=== PATIENT | female | born 1965 | race African-American/Black ===

== ENCOUNTER 2021-10-25 09:17 | Emergency (ER) | payer MEDICARE, MEDICAID, SELFPAY ==
[2021-10-25 09:30] VITALS: BP 158/107; PULSE 146; RESP 18; TEMP 38.8; O2SAT 98
[2021-10-25] MEDS: ACETAMINOPHEN 325 MG TABLET 650 MG PO (10:04)
--- NOTE | 2021-10-25 10:04 | ED.URI ---
HPI - URI/Sore Throat General Chief Complaint: Upper Respiratory Infection Stated Complaint: vomiting/cold sx Source: patient and family Mode of arrival: ambulatory History of Present Illness HPI Narrative: This is a 55-year-old female presented to urgent care with complaints of congestion with green sputum, body aches nausea and vomiting, shortness of breath that she experienced last week . Patient does has a history of asthma and sleep apnea she notes that she has rescue inhaler and nebulizer she has not used it patient instructed to use the nebulizer and inhaler as instructed by her primary care physician. Patient notes that she thought that she was having symptoms because she has not used her CPAP. According to patient her CPAP has been recalled. She also reports frontal and maxillary facial tenderness. Covid and influenza negative patient will complete PCR Related Data Home Medications Medication Instructions Recorded Confirmed hydroxychloroquine [Plaquenil] 200 mg PO DAILY 10/25/21 10/25/21 Allergies Allergy/AdvReac Type Severity Reaction Status Date / Time sulfamethoxazole Allergy Hives Verified 10/25/21 10:00 [From Bactrim] trimethoprim [From Bactrim] Allergy Hives Verified 10/25/21 10:00 Review of Systems Review of Systems: A 14 organ system Review of Systems was performed and pertinent positives included in the HPI, otherwise remaining ROS is negative. [facility] Family History Family History (Updated 10/25/21 @ 10:06 by BHARATI Bernard-Maria Luisa) Other Family history non-contributory Exam Narrative: GENERAL: Ill appearance with shortness of breath, in no apparent distress. HEAD: normocephalic, atraumatic. Frontal maxillary tenderness frontal maxillary tenderness EYES: PERRL. Sclera clear/white. Vision is grossly intact. EARS: External ears normal, auditory canals clear and without drainage, TMs normal without perforation. Hearing grossly intact. NOSE: External nose normal with no obvious nasal discharge, nares without redness, no rhinorrhea. THROAT: Mucous membranes moist, posterior pharynx clear. NECK: Neck supple, non-tender without lymphadenopathy, masses or thyromegaly. CARDIOVASCULAR: Regular rate and rhythm without murmurs, gallops, or rubs. RESPIRATORY: Clear to auscultation. Breath sounds equal bilaterally. No wheezes, rales, or rhonchi. Cough present GASTROINTESTINAL: Abdomen soft, non-tender, nondistended. Bowel sounds are active. No hepato-splenomegaly, or palpable masses. No guarding. SKIN: warm, intact with no suspicious lesions or rash, good texture and turgor. NEURO: awake, alert, and oriented to person, place and time. There were no obvious focal neurologic abnormalities. Steady gait EXTREMITIES: Normal range of motion. No edema. No calf tenderness. Negative Homans sign bilaterally. BACK: Nontender without deformity or crepitance. No flank tenderness. Course Course Emergency Course: Patient will be treated for sinusitis with doxycycline, guaifenesin, Tessalon Perles, and Flonase. Patient instructed to use her rescue inhaler as well as her nebulizer she did utilize her albuterol while in examination room. Vital Signs Vital signs: Vital Signs Temperature 101.9 F H 10/25/21 09:30 Pulse Rate 146 H 10/25/21 09:30 Respiratory Rate 18 10/25/21 09:30 Blood Pressure 158/107 H 10/25/21 09:30 Pulse Oximetry 98 10/25/21 09:30 Temperature 101.9 F H 10/25/21 09:30 Pulse Rate 146 H 10/25/21 09:30 Respiratory Rate 18 10/25/21 09:30 Blood Pressure 158/107 H 10/25/21 09:30 Pulse Oximetry 98 10/25/21 09:30 MDM - URI/Sore Throat Differential Diagnosis Differential diagnosis: Likely upper respiratory infection, sinusitis, viral infection, influenza and pharyngitis Discharge Plan Discharge Clinical Impression: Encounter for laboratory testing for COVID-19 virus, Sinusitis Patient Disposition: Home, Self-Care Condition: Stable Instructions: Antibiotic F
== END 2021-10-25 10:40 | disposition home or self-care (01) ==
PROVIDERS: Emergency Provider Nurse Practitioner; PCP Internal Medicine Infectious Disease
DX: J32.9 Chronic sinusitis, unspecified (principal); Z20.822 Contact with and (suspected) exposure to COVID-19
CPT/HCPCS: 87426; 87804; 99203; A9270; C9803; G0463

== ENCOUNTER 2023-05-02 12:30 | Outpatient (RCR) | payer MEDICARE, MEDICAID, SELFPAY ==
--- NOTE | 2023-04-15 10:50 | OPREHPOC ---
Outpatient Therapy Plan of Care This is a Multidisciplinary Plan of Care that may contain components documented by all disciplines (PT, OT, and ST.) PT Problem 1 PT Problem #1 Knowledge Deficit PT Goal 1 Goal patient will demonstrate independence in home exercise program PT Problem 2 PT Problem #2 Pain PT Goal 1 Goal Patient will report pain as 3/10 in low back and L leg PT Problem 3 PT Problem #3 Impaired Range of Motion PT Goal 1 Goal Patient will demonstrate bilateral hamstring length supine 80 degrees PT Problem 4 PT Problem #4 Impaired Endurance PT Goal 1 Goal Patient will report improved ability to ambulate in [employer] for 20 minutes with pain rated as 3/10 or less PT Problem 5 PT Problem #5 Impaired Strength PT Goal 1 Goal 1. Patient will perform 20 reps bilateral supine straight leg raise due to improvements in strenght 2. Patient will perform 20 reps prone hip extension due to improvements in strength
--- NOTE | 2023-04-15 10:51 | PTOPEVAL1 ---
Assessment and note entered by Jessica Saldivar, PT Evaluation Information Assessment Status Evaluation Diagnosis back pain Onset 3 weeks ago Subjective Information Referred to physical therapy due to back pain, currently rated as 8/10 with radiating pain into L leg. Pain is limiting ability to walk in community and to perform daily chores. Patient recently had imaging done of lumbar spine however does not know results of imagine. Patient goal is to decrease pain in order to improve mobility in community. Reported Pain Level Pain Score 8: Self Report Assessment PT Clinical Summary Patient is 57 year old female referred to to low back pain with radicular symptoms into L leg. Patient currently reporting pain as 8/10 which limits her ability to perform daily chores and community mobility. Patient presents with lower extremity and core weakness, decreased flexibility of lumbar spine, and piriformis/hamstring musculature tightness. Patient would benefit from skilled physical therapy services 2x/wk for 4 weeks to improve muscle strength, increase range of motion of lumbar spine, improve muscle length, and decrease pain. Plan of Care Interventions Aquatic Therapy,Electrical Stimulation,Gait Training,Hot Pack/Cold Pack,Manual Therapy,Neuro Re-education,Patient/Caregiver Education,Therapeutic Activities,Therapeutic Exercise,Ultrasound PT Services Indicated Yes Treatment Frequency and 2x/wk for 4 weeks Duration These treatments will address the objective and functional deficits as defined above. The patient will be advanced safely and appropriately in order for the patient to progress towards his/her prior level of function. Additional exercises will be introduced and as well as a comprehensive home exercise program upon discharge, if needed, ?to ensure carryover of functional gains achieved in the clinic. This treatment plan has been reviewed and agreement upon by the patient.
--- NOTE | 2023-04-18 11:55 | PCPTNOTE ---
Pt. canceled today's visit (04/18/23) due to being sick.
--- NOTE | 2023-04-25 12:36 | PCPTNOTE ---
Pt. canceled 04/21/23 appointment as she was in the hospital.
--- NOTE | 2023-04-28 11:46 | PCPTNOTE ---
Pt. canceled 04/25/23 and 04/28/23 appointments as she has been getting IV injections and has an IV that remains in place until she is finished on 04/29/23. She plans on resuming once she is finished with those.
--- NOTE | 2023-05-05 11:19 | PCPTNOTE ---
Pt. canceled (05/05/23) due to insurance issues and will call back once she gets it sorted out.
--- NOTE | 2023-05-08 13:23 | PTOPDC ---
Assessment and note entered by Jessica Saldivar, PT Evaluation Information Assessment Status Discharge - Pt Not Presen Diagnosis back pain Onset 3 weeks ago Subjective Information patient requires DC from PT services due to switching insurance Assessment PT Clinical Summary Patient has been participating in physical therapy due to back pain. Patient requires cancellation of last 2 PT visits and DC from therapy due to switching insurance. Patient will call MD for further PT eval after switching insurance. Plan of Care PT Services Indicated No
== END 2023-05-09 14:20 | disposition home or self-care (01) ==
LOC: ANHPT 12:30
PROVIDERS: PCP Internal Medicine Infectious Disease; Visit Provider Family Medicine
DX: M54.16 Radiculopathy, lumbar region (principal)
CPT/HCPCS: 97110; 97140; 97162

== ENCOUNTER 2023-07-02 12:30 | Outpatient (RCR) | payer MEDICARE, MEDICAID, SELFPAY ==
--- NOTE | 2023-06-04 13:36 | OPREHPOC ---
Outpatient Therapy Plan of Care This is a Multidisciplinary Plan of Care that may contain components documented by all disciplines (PT, OT, and ST.) PT Problem 1 PT Problem #1 Knowledge Deficit PT Goal 1 Goal Independent with HEP Target Visit 8 PT Problem 2 PT Problem #2 Pain PT Goal 1 Goal decrease pain to 4/10 at worst Target Visit 8 PT Goal 2 Goal Centralize pain to above the L knee and none in the R LE Target Visit 8 PT Problem 3 PT Problem #3 Impaired Strength PT Goal 1 Goal able to do 15 reps of bridges without pain Target Visit 8 PT Problem 4 PT Problem #4 Impaired Flexibility PT Goal 1 Goal mild tightness in L calf Target Visit 8
--- NOTE | 2023-06-04 13:36 | PTOPEVAL1 ---
Assessment and note entered by Margarito Hedrick, PT Evaluation Information Diagnosis lumbar radiculopathy Onset 2-3 months ago Subjective Information Patient reports a prior history of joint pain from OA, but that this radiating leg pain is fairly new. Does not recall a specific incident that started the pain. Patient's pain is worst after being inactive and in a prolonged position. The radiating symptoms go all the way from the back into the L toes constantly and reports occasional pain from the back to the thigh on the R side. Patient uses a heating pad and Tylenol. Was here prior, but was having issues with insurance and had to stop. Reported Pain Level Pain Score 7: Self Report Assessment PT Clinical Summary Nara is a 57 year old female coming into the clinic with a diagnosis of lumbar radiculopathy. The patient has decreased core strength along with tightness in the lower back and LLE calf. Physical therapy will work with the patient on stretching and strengthening the low back and core along with modalities and manual therapy for pain control. Plan of Care Interventions Electrical Stimulation,Gait Training,Hot Pack/Cold Pack,Manual Therapy,Mechanical Traction,Neuro Re- education,Patient/Caregiver Education,Therapeutic Activities,Therapeutic Exercise,Ultrasound Other Interventions cupping, taping, IASTM PT Services Indicated Yes Treatment Frequency and 2x/wk for 8 visits Duration These treatments will address the objective and functional deficits as defined above. The patient will be advanced safely and appropriately in order for the patient to progress towards his/her prior level of function. Additional exercises will be introduced and as well as a comprehensive home exercise program upon discharge, if needed, ?to ensure carryover of functional gains achieved in the clinic. This treatment plan has been reviewed and agreement upon by the patient.
--- NOTE | 2023-06-18 11:38 | PCPTNOTE ---
Pt. canceled 06/18/23 appointment because she was having car trouble and needed to get it fixed.
--- NOTE | 2023-06-18 14:11 | PCPTNOTE ---
Pt. cancelled her appointment on this date due to car trouble
--- NOTE | 2023-07-02 14:40 | PTOPDC ---
Assessment and note entered by Margarito Hedrick, PT Evaluation Information Assessment Status Discharge Diagnosis lumbar radiculopathy Onset 2-3 months ago Subjective Information Patient reports still having pain going down the L LE and into the R hip. Patient has also started doing transfusions which are increasing soreness and making her tired. Patient is doing her exercises, but just not everyday as prescribed. Reported Pain Level Pain Score 4: Self Report Additional Pain Score Comments Down the LLE and into the R hip, but also all over her body. Assessment PT Clinical Summary Nara is a 57 year old female coming into the clinic with a diagnosis of lumbar radiculopathy. She was evaluated on 06/04/23 and has attended 8 sessions. The patient has made improvements in muscle flexibility, but no significant change in pain. At this time recommend MRI imaging of the back if MD feels warranted to assess for potential impingement. Patient also reports secondary to infusion further whole body musculoskeletal issues, recommend new physical therapy order for general strengthening, potentially aquatic therapy. Plan of Care PT Services Indicated Yes
== END 2023-07-03 14:26 | disposition home or self-care (01) ==
LOC: ANHPT 12:30
PROVIDERS: PCP Internal Medicine Infectious Disease; Visit Provider Family Medicine
DX: M54.16 Radiculopathy, lumbar region (principal)
CPT/HCPCS: 97110; 97161; 97530

== ENCOUNTER 2025-09-21 09:15 | Outpatient (RCR) | payer MEDICARE, MEDICAID, SELFPAY ==
--- NOTE | 2025-07-06 15:48 | OPREHPOC ---
Outpatient Therapy Plan of Care This is a Multidisciplinary Plan of Care that may contain components documented by all disciplines (PT, OT, and ST.) PT Problem 1 PT Problem #1 Knowledge Deficit PT Goal 1 Goal / Goal Update 1. Patient will perform independent HEP 2. Patient will verbalize urge suppression strategies Target Visit 2 PT Problem 2 PT Problem #2 Impaired Strength PT Goal 1 Goal / Goal Update 1. Improve pelvic floor strength to 4/5 to reduce incontinence 2. Improve pelvic floor endurance to 10 seconds to reduce incontinence Target Visit 4 PT Problem 3 PT Problem #3 Impaired Functional ADLs PT Goal 1 Goal / Goal Update 1. Patient able to hold urge to void at least 30 minutes at all times 2. Patient will void no more than 8 times in a 24 hour period 3. Patient will not report urinary incontinence more than 1 time per week Target Visit 4
--- NOTE | 2025-07-06 15:48 | PTOPEVAL1 ---
Assessment and note entered by Valentine Barnes DPT Evaluation Information Assessment Status Evaluation ICD-10 Condition Codes (PT) Weakness R53.1,Urge incontinence N39.41,Mixed incontinence N39.46,Stress incontinence N39.3 Subjective Information Pt has diagnosis of OAB. Voiding a little less than 10 times a day, 2-4 at night. Can hold urge to 15-20 minutes at the most. Urge incontinence occurs daily. Wearing depends at times and has had to change clothes because of incontinence. Also gets some stress incontinence with coughing or sneezing. Denies pain with urination. BM daily. No history of pelvic pain. Pt has been 5 times, 5 vaginal deliveries. Tubal ligation in the 80s, no other [employer] history. No b/b issues. Pt has been having incontinence for at least a year and is worsening. Pt reports she does void before going out in the community. Takes extra underwear with her. Returns to urology in a couple months. Patient goal: keep dry, avoid taking any medicine for this Reported Pain Level Pain Score 0: Self Report Assessment PT Clinical Summary The patient is presenting to skilled therapy with a diagnosis of OAB and reports mixed urinary incontinence. She presents with decreased pelvic floor strength and endurance, and decreased hip and abdominal strength. These impairments are contributing to her incontinence and increased urinary frequency and she will benefit from therapy to restore full function. Plan of Care Interventions Manual Therapy,Neuro Re-education,Patient/ Caregiver Education,Therapeutic Activities, Therapeutic Exercise PT Services Indicated Yes Treatment Frequency and 1 time a week for 4 visits Duration These treatments will address the objective and functional deficits as defined above. The patient will be advanced safely and appropriately in order for the patient to progress towards his/her prior level of function. Additional exercises will be introduced and as well as a comprehensive home exercise program upon discharge, if needed, ?to ensure carryover of functional gains achieved in the clinic. This treatment plan has been reviewed and agreement upon by the patient.
--- NOTE | 2025-07-27 16:25 | OPREHPOC ---
Outpatient Therapy Plan of Care This is a Multidisciplinary Plan of Care that may contain components documented by all disciplines (PT, OT, and ST.) PT Problem 1 PT Problem #1 Knowledge Deficit PT Goal 1 Goal / Goal Update 1. Patient will perform independent HEP 2. Patient will verbalize urge suppression strategies Target Visit 2 Progress Met PT Problem 2 PT Problem #2 Impaired Strength PT Goal 1 Goal / Goal Update 1. Improve pelvic floor strength to 4/5 to reduce incontinence 2. Improve pelvic floor endurance to 10 seconds to reduce incontinence Target Visit 4 Progress Met PT Problem 3 PT Problem #3 Impaired Functional ADLs PT Goal 1 Goal / Goal Update 1. Patient able to hold urge to void at least 30 minutes at all times 2. Patient will void no more than 8 times in a 24 hour period 3. Patient will not report urinary incontinence more than 1 time per week update 07/27/25 1. able to hold 30 minutes at times 2. 10-12 3. a few times a week Target Visit 4 Progress Partially Met
--- NOTE | 2025-07-27 16:25 | PTOPPROG ---
Assessment and note entered by Valentine Barnes DPT Evaluation Information Assessment Status Progress ICD-10 Condition Codes (PT) Weakness R53.1,Urge incontinence N39.41,Mixed incontinence N39.46,Stress incontinence N39.3 Subjective Information Voiding about 10 times at night and 2 times at night. Has had times recently where she has only gotten up 1 time at night to void. Thinks she can hold urge to void longer than 30 minutes at times. Using pads during the day and depends at night. Incontinence a few times in the last week. Pt does feel stronger and thinks things are improving somewhat. Returns to MD in 2 weeks to address vaginal issues and reports her doctor did think she have an infection. No antibiotic currently. Assessment PT Clinical Summary The patient has made good progress in therapy so far and reports improved ability to hold urge to void and overall decreased urinary incontinence. She also reports improvements in nocturia and has been up to void 1-2 times recently. She demonstrates improved pelvic floor strength and endurance and improved abdominal strength. Due to her continued incontinence and increased urinary frequency, she will benefit from further therapy to address all symptoms and return to function. Plan of Care Interventions Manual Therapy,Neuro Re-education,Patient/ Caregiver Education,Therapeutic Activities, Therapeutic Exercise PT Services Indicated Yes Treatment Frequency and 1 time a week for 4 visits Duration These treatments will address the objective and functional deficits as defined above. The patient will be advanced safely and appropriately in order for the patient to progress towards his/her prior level of function. Additional exercises will be introduced and as well as a comprehensive home exercise program upon discharge, if needed, ?to ensure carryover of functional gains achieved in the clinic. This treatment plan has been reviewed and agreement upon by the patient.
--- NOTE | 2025-08-05 14:46 | PCPTNOTE ---
Patient did not show up for appt 08/05/25.
--- NOTE | 2025-09-07 14:52 | OPREHPOC ---
Outpatient Therapy Plan of Care This is a Multidisciplinary Plan of Care that may contain components documented by all disciplines (PT, OT, and ST.) PT Problem 1 PT Problem #1 Knowledge Deficit PT Goal 1 Goal / Goal Update 1. Patient will perform independent HEP 2. Patient will verbalize urge suppression strategies Target Visit 2 Progress Met PT Problem 2 PT Problem #2 Impaired Strength PT Goal 1 Goal / Goal Update 1. Improve pelvic floor strength to 4/5 to reduce incontinence 2. Improve pelvic floor endurance to 10 seconds to reduce incontinence Target Visit 4 Progress Met PT Problem 3 PT Problem #3 Impaired Functional ADLs PT Goal 1 Goal / Goal Update 1. Patient able to hold urge to void at least 30 minutes at all times 2. Patient will void no more than 8 times in a 24 hour period 3. Patient will not report urinary incontinence more than 1 time per week update 07/27/25 1. able to hold 30 minutes at times 2. 10-12 3. a few times a week update 09/07/25 1. same 2. decreased at night 3. same Target Visit 4 Progress Partially Met
--- NOTE | 2025-09-07 14:52 | PTOPPROG ---
Assessment and note entered by Valentine Barnes DPT Evaluation Information Assessment Status Progress ICD-10 Condition Codes (PT) Weakness R53.1,Urge incontinence N39.41,Mixed incontinence N39.46,Stress incontinence N39.3 Subjective Information Pt reports therapy is continuing to help. States she is voiding about 10 times a day and consistently 1 time at night. Has had some nights where she has slept through. Can hold longer than 30 minutes at times but not all the time. Incontinence 4 times in the last week. Also thinks volume of incontinence is smaller. Assessment PT Clinical Summary The patient has continued to make good progress in therapy. She reports decreased urination at night to 0-1 times. She also reports decreased volume of incontinence. She demonstrates improved hip strength and improved pelvic floor muscle coordination. She will continue to benefit from therapy to further address strength in order to further reduce frequency and incontinence and to restore full function. Plan of Care Interventions Manual Therapy,Neuro Re-education,Patient/ Caregiver Education,Therapeutic Activities, Therapeutic Exercise PT Services Indicated Yes Treatment Frequency and 1 visit every other week x 3 visits Duration These treatments will address the objective and functional deficits as defined above. The patient will be advanced safely and appropriately in order for the patient to progress towards his/her prior level of function. Additional exercises will be introduced and as well as a comprehensive home exercise program upon discharge, if needed, ?to ensure carryover of functional gains achieved in the clinic. This treatment plan has been reviewed and agreement upon by the patient.
== END 2025-10-04 23:59 | disposition home or self-care (01) ==
LOC: ANHPT 09:15
PROVIDERS: PCP Internal Medicine Infectious Disease; Visit Provider Physician Assistant
DX: N32.81 Overactive bladder (principal)
CPT/HCPCS: 97112; 97161; 97530

== ENCOUNTER 2025-10-21 10:30 | Outpatient (RCR) | payer MEDICARE, MEDICAID, SELFPAY ==
--- NOTE | 2025-10-07 09:36 | PCPTNOTE ---
Patient cancelled appointment 10/07/25 due to having the flu.
--- NOTE | 2025-10-21 11:10 | OPREHPOC ---
Outpatient Therapy Plan of Care This is a Multidisciplinary Plan of Care that may contain components documented by all disciplines (PT, OT, and ST.) PT Problem 1 PT Problem #1 Knowledge Deficit PT Goal 1 Goal / Goal Update 1. Patient will perform independent HEP 2. Patient will verbalize urge suppression strategies Target Visit 2 Progress Met PT Problem 2 PT Problem #2 Impaired Strength PT Goal 1 Goal / Goal Update 1. Improve pelvic floor strength to 4/5 to reduce incontinence 2. Improve pelvic floor endurance to 10 seconds to reduce incontinence Target Visit 4 Progress Met PT Problem 3 PT Problem #3 Impaired Functional ADLs PT Goal 1 Goal / Goal Update 1. Patient able to hold urge to void at least 30 minutes at all times 2. Patient will void no more than 8 times in a 24 hour period 3. Patient will not report urinary incontinence more than 1 time per week update 07/27/25 1. able to hold 30 minutes at times 2. 10-12 3. a few times a week update 09/07/25 1. same 2. decreased at night 3. same update 10/21/15 1. same 2. met 3. met Target Visit 11 Progress Partially Met
--- NOTE | 2025-10-21 11:10 | PTOPDC ---
Assessment and note entered by Valentine Barnes DPT Evaluation Information Assessment Status Discharge ICD-10 Condition Codes (PT) Weakness R53.1,Urge incontinence N39.41,Mixed incontinence N39.46,Stress incontinence N39.3 Subjective Information Pt forgot to bring bladder diary but did keep track and thinks the most she voided per day over the last week was 7. Typically 1 time at night, one night where she slept through. Can hold more than 30 minutes to void some of the time. No urinary incontinence in the last week, even coughing. Using pads mostly out of comfort but has not really needed them. Reported Pain Level Pain Score 0: Self Report Assessment PT Clinical Summary The patient has made excellent progress in therapy . She reports no incontinence in the last week and normal voiding frequency. She demonstrates improved pelvic floor muscle coordination as well. Due to her progress, discharge is recommended at this time. She has been educated to continue HEP and follow up with PT and/or MD as needed. Plan of Care PT Services Indicated No
== END 2025-10-21 14:09 | disposition home or self-care (01) ==
LOC: ANHPT 10:30
PROVIDERS: PCP Internal Medicine Infectious Disease; Visit Provider Physician Assistant
DX: N32.81 Overactive bladder (principal)
CPT/HCPCS: 97112; 97530